=== PATIENT | male | born 1950 | race African-American/Black ===

== ENCOUNTER 2021-03-01 18:15 | Emergency (ER) | payer BC, SELFPAY ==
--- NOTE | ~2021-03-01 | XR_ITS ---
EXAMINATION: XR abdomen/kub 1V EXAM DATE: 03/01/2021 19:06 INDICATION: Constipation. TECHNIQUE: Frontal projection of the upper abdomen, frontal projection lower abdomen/pelvis for inter pretation. There is no prior study for comparison. FINDINGS: There is moderate amount of colonic stool and gas. No small bowel dilation, nonobstructiv e bowel gas pattern. Chronic pelvic calcifications. There is no organomegaly suspected. There are mild bony degenerative changes. IMPRESSION: Moderate amount of colonic stool. Reviewed, dictated and finalized at location A. RPRETIVE NATURALIST
[2021-03-01 18:41] VITALS: BP 164/118; PULSE 88; RESP 18; TEMP 35.7; O2SAT 100
--- NOTE | 2021-03-01 18:41 | ED.GENADULT ---
HPI - General Adult General Chief complaint: Abdominal Pain Stated complaint: Locked Bowels Time Seen by Provider: 03/01/21 18:41 Source: patient and family History of Present Illness HPI narrative: PATIENT HERE FOR EVALUATION OF CONSTIPATION. PATIENT HAS NOT TRIED ANYTHING OTC FOR HIS CONSTIPATION. DENIES ANY NAUSEA, NO ABDOMINAL PAIN NO RECTAL PAIN. PATIENT STATES HIS LAST BM WAS 4 DAYS AGO. Related Data Allergies Allergy/AdvReac Type Severity Reaction Status Date / Time No Known Allergies Allergy Unverified 06/13/18 00:54 Review of Systems Review of Systems: CONSTITUTIONAL: Denies fever, chills, or sweats. EYES: Denies visual changes, redness, or discharge. ENT: Denies rhinorrhea, congestion, sore throat, or otalgia. CARDIOVASCULAR: Denies chest pain, palpitations, or edema. RESPIRATORY: Denies cough or dyspnea. GASTROINTESTINAL: Denies abdominal pain, nausea, vomiting, or diarrhea. GENITOURINARY: Denies dysuria or hematuria. SKIN: Denies rash or itching. MUSCULOSKELETAL: Denies back pain, joint pain, or myalgia. NEUROLOGIC: Denies headache, numbness, or weakness. PSYCHIATRIC: Denies anxiety or depression. [facility] Past Medical History Medical History (Updated 03/01/21 @ 19:00 by CASSIE Herrera) Arthritis Cataracts, bilateral CVA (cerebral vascular accident) DM II (diabetes mellitus, type II), controlled GI bleed History of kidney stones Hypercholesteremia Hypertension Ulcer Surgical History Surgical History (Updated 02/02/19 @ 16:54 by Teja Lennon) No significant past surgical history Social History Social History (Updated 02/02/19 @ 16:55 by Teja Lennon) Smoking packs per day: 1 Smoking cigarettes per day: 20.0 Smoking status: Current every day smoker Gender identity (if verbalized by the patient): Male Comments At time of signature, agree with nursing past medical, surgical, social and family history. There is no relevant family history pertinent to the presenting complaint Exam Narrative: GENERAL: Well-appearing, well-nourished, and in no acute distress. HEAD: Normocephalic, atraumatic. EYES: PERRLA and EOMI. ENT: Nares clear, no rhinorrhea or epistaxis. Mucous membranes moist. NECK: Supple. CHEST: Clear to auscultation. No respiratory distress. HEART: Regular rate and rhythm. No murmur heard. Normal peripheral pulses. ABDOMEN: Soft, nontender, nondistended, normal active bowel sounds. EXTREMITIES: Normal range of motion. No edema. SKIN: Warm, dry, no rash. NEURO: No focal deficits. Alert and oriented x3. Radha Coma Scale Eye Opening: Spontaneous 4 Radha Coma Scale Motor: Obeys Commands 6 [place] Coma Scale Verbal: Oriented 5 Radha Coma Scale Total 15 Course Vital Signs Vital signs: Vital Signs Temperature 35.7 C L 03/01/21 18:41 Pulse Rate 88 03/01/21 18:41 Respiratory Rate 18 03/01/21 18:41 Blood Pressure 164/118 H 03/01/21 18:41 Pulse Oximetry 100 03/01/21 18:41 Temperature 35.7 C L 03/01/21 18:53 Pulse Rate 88 03/01/21 18:53 Respiratory Rate 18 03/01/21 18:53 Blood Pressure 164/118 H 03/01/21 18:53 Pulse Oximetry 100 03/01/21 18:53 Addressed elevated BP today. Today's blood pressure higher than recommended range. Discussed importance of follow -up with PCP and possible shelter effects/cardiovascular events related to HTN. Currently patient denies headache, dizziness, vision changes, CP or shortness of breath. PATIENT REPORTS STARTING ON A NEW MEDICATION FOR HIS BLOOD PRESSURE THIS WEEK. PATIENT STATES WAS EVALUATIED BY PCP AND PRESCRIBED A NEW MEDICATION FOR HIS BLOOD PRESSURE PATIENT DENIES ANY S/S OF HYPERTENSION. DISCUSSED RED FLAGS AND ENCOURAGEGED PATIENT TO CALL PCP IN AM FOR DISCUSSION OF ELEVATED BLOOD PRESSURE. There is moderate amount of colonic stool and gas. No small bowel dilation, nonobstructive bowel gas pattern. Chronic pelvic calcifications. There is no organomegaly suspected. There are mild bony degenerati
[2021-03-01 18:53] VITALS: BP 164/118; PULSE 88; RESP 18; TEMP 35.7; O2SAT 100
== END 2021-03-01 19:16 | disposition home or self-care (01) ==
PROVIDERS: Emergency Provider Nurse Practitioner Family
DX: K59.00 Constipation, unspecified (principal); F17.210 Nicotine dependence, cigarettes, uncomplicated; M19.90 Unspecified osteoarthritis, unspecified site; Z86.73 Personal history of transient ischemic attack (TIA), and cerebral infarction without residual deficits; E11.9 Type 2 diabetes mellitus without complications; E78.00 Pure hypercholesterolemia, unspecified; I10 Essential (primary) hypertension; H26.9 Unspecified cataract
CPT/HCPCS: 74018; 99213; G0463

== ENCOUNTER 2021-03-06 01:00 | Emergency (ER) | payer BC, SELFPAY ==
--- NOTE | ~2021-03-06 | CT_ITS ---
EXAMINATION: CT abdomen pelvis w con INDICATION: Abdominal pain TECHNIQUE: Computed tomographic images of the abdomen and pelvis were obtained after the administrati on of 100 cc of Omnipaque 350 intravenous contrast. The dose-length product (DLP) was 288.22 mGy-cm. Automated exposure control and iterative reconstruction technique were employed. COMPARISON: None available FINDINGS: There is severe emphysema of the visualized lung bases. There are multiple small cysts of t he liver which measure up to 6 mm. The spleen, pancreas, gallbladder, and adrenal glands are normal. The right kidney is unremarkable. There is a 1.5 cm cyst of the left kidney. No pathologically enlarg ed abdominal or pelvic lymph nodes are identified. There is no free intraperitoneal gas or evidence o f bowel obstruction. There is calcified atherosclerosis of the aorta and many of the other arteries. A large volume of colonic stool is present. Coarse calcifications are noted in the prostate. There is a large right inguinal hernia extending into the scrotum containing greater than 10 cm nonobstructed large bowel. There is severe lumbar spondylosis. IMPRESSION: 1. Large right inguinal hernia containing greater than 10 cm of nonobstructed large bowel. 2. Constipation. 3. Severe emphysema visualized lung bases. Reviewed, dictated and finalized at location A. NCT ART HISTORY INSTRUCTOR IMPRESSION: 1. Large right inguinal hernia containing greater than 10 cm of nonobstructed l arge bowel. 2. Constipation. 3. Severe emphysema visualized lung bases.
[2021-03-06 01:26] VITALS: BP 185/116; PULSE 82; RESP 18; O2SAT 97
[2021-03-06 02:03] LABS: Basophils Percent Auto 0.6 % (0.2-1.2); Eosinophils Absolute Auto 0.1 K/mm3 (0-0.3); Eosinophils Percent Auto 1.8 % (0-4.4); Hematocrit 41.8 % (42.0-52.0); Hemoglobin 13.3 g/dL (14.0-18.0); Immature Granulocyte Absolute 0.01 K/mm3 (0.00-0.031); Immature Granulocyte Percent A 0.2 % (0-0.5); Lymphocytes Absolute Auto 1.88 K/mm3 (0.9-3.2); Lymphocytes Percent Auto 37.2 % (18.3-44.2); Mean Corpuscular HGB Conc 31.8 g/dl (32-36); Mean Corpuscular Hemoglobin 27.1 pg (26-34); Mean Corpuscular Volume 85.1 fl (80-100); Mean Platelet Volume 8.6 fl (7.4-10.4); Monocytes Absolute Auto 0.4 K/mm3 (0.1-0.6); Monocytes Percent Auto 8.7 % (2.6-8.5); Neutrophils Absolute Auto 2.6 K/mm3 (1.3-6.7); Neutrophils Percent Auto 51.5 % (45.5-73.1); Platelet Count Result 297 k/mm3 (150-375); Red Blood Count 4.91 M/mm3 (4.6-6.20); Red Cell Distribution Width 15.1 % (11.5-14.5); White Blood Count 5.1 K/mm3 (4.5-10.0)
[2021-03-06 02:15] LABS: Lactic Acid Reflex 1.2 mmol/L (0.7-2.1)
[2021-03-06 02:16] LABS: Alanine Aminotransferase 9 U/L (4-50); Albumin Level 4.1 g/dL (3.5-5.1); Alkaline Phosphatase 78 U/L (38-126); Anion Gap 6 mmol/L (8-16); Aspartate Amino Transferase 24 U/L (17-59); Bilirubin,Total 0.5 mg/dL (0.2-1.3); Blood Urea Nitrogen 17 mg/dL (9-20); Calcium 9.3 mg/dL (8.4-10.2); Carbon Dioxide 33 mmol/L (22-30); Chloride 95 mmol/L (98-107); Estimated CRCL calculation 45 ml/min; Estimated Glomerular Filt Rate > 60; Glucose 107 mg/dL (65-110); Lipase 16 U/L (23-300); Magnesium 1.5 mg/dL (1.6-2.3); Potassium 3.7 mmol/L (3.4-5.0); Sodium 134 mmol/L (137-145)
[2021-03-06 03:01] VITALS: BP 170/110; PULSE 71; RESP 16; O2SAT 97
--- NOTE | 2021-03-06 04:45 | ED.GENADULT ---
HPI - General Adult General Chief complaint: Abdominal Pain Stated complaint: kidney pain, low back pain, painful urination Time Seen by Provider: 03/06/21 01:16 History of Present Illness HPI narrative: Patient is a 70-year-old gentleman who presents the emergency department with chief complaint of abdominal discomfort. Patient reports he was seen in urgent care earlier this week told that he had constipation given MiraLAX and put on a stool softener. Patient states he still having very small bowel movements and reports his abdomen feels uncomfortable and feels as though he needs to have a bowel movement. The patient reports he had difficulty urinating and reports that he does can get comfortable. Patient reports that he had no vomiting no blood in his stool patient states that symptoms or not improved by anything. Related Data Allergies Allergy/AdvReac Type Severity Reaction Status Date / Time No Known Allergies Allergy Unverified 06/13/18 00:54 Review of Systems Review of Systems: A 10 system review of systems was completed on the patient and is negative except for what is stated in the HPI. Nursing and ancillary documentation was reviewed. [facility] Past Medical History Medical History Arthritis Cataracts, bilateral CVA (cerebral vascular accident) DM II (diabetes mellitus, type II), controlled GI bleed History of kidney stones Hypercholesteremia Hypertension Ulcer Surgical History Surgical History No significant past surgical history Social History Social History Smoking packs per day: 1 Smoking cigarettes per day: 20.0 Smoking status: Current every day smoker Gender identity (if verbalized by the patient): Male Exam Narrative: GENERAL: Well-appearing, well-nourished, and in no acute distress. HEAD: Normocephalic, atraumatic. EYES: PERRLA and EOMI. ENT: Nares clear, no rhinorrhea or epistaxis. Mucous membranes moist. NECK: Supple. CHEST: Clear to auscultation. No respiratory distress. HEART: Regular rate and rhythm. No murmur heard. Normal peripheral pulses. ABDOMEN: Soft, nontender, nondistended, normal active bowel sounds. : There is a large amount of stool in the rectal vault that is guaiac negative EXTREMITIES: Normal range of motion. No edema. SKIN: Warm, dry, no rash. NEURO: No focal deficits. Alert and oriented x3. PSYCH: Normal mood and affect. Course Course Emergency Course: CT scan of the abdomen pelvis showed moderate amount of stool throughout the colon and rectum. There is no otherwise no acute finding Vital Signs Vital signs: Vital Signs Pulse Rate 82 03/06/21 01:26 Respiratory Rate 18 03/06/21 01:26 Blood Pressure 185/116 H 03/06/21 01:26 Pulse Oximetry 97 03/06/21 01:26 Pulse Rate 76 03/06/21 05:01 Respiratory Rate 18 03/06/21 05:01 Blood Pressure 169/123 H 03/06/21 05:01 Pulse Oximetry 98 03/06/21 05:01 Medical Decision Making Vital Signs Vital Signs: Vital Signs Pulse Rate 82 03/06/21 01:26 Respiratory Rate 18 03/06/21 01:26 Blood Pressure 185/116 H 03/06/21 01:26 Pulse Oximetry 97 03/06/21 01:26 Pulse Rate 76 03/06/21 05:01 Respiratory Rate 18 03/06/21 05:01 Blood Pressure 169/123 H 03/06/21 05:01 Pulse Oximetry 98 03/06/21 05:01 Lab Data Result diagrams: 03/06/21 01:56 03/06/21 01:56 Labs: Lab Results 03/06/21 03/06/21 03/06/21 Range/Units 01:56 01:56 01:56 WBC 5.1 (4.5-10.0) K/mm3 RBC 4.91 (4.6-6.20) M/mm3 Hgb 13.3 L (14.0-18.0) g/dL Hct 41.8 L (42.0-52.0) % MCV 85.1 (80-100) fl MCH 27.1 (26-34) pg MCHC 31.8 L (32-36) g/dl RDW 15.1 H (11.5-14.5) % Plt Count 297 (150-375) k/mm3 MPV 8.6 (7.4-10.4) fl Immature Gran % (Auto)
[2021-03-06 05:01] VITALS: BP 169/123; PULSE 76; RESP 18; O2SAT 98
--- NOTE | 2021-03-06 05:07 | PC.NURSE ---
[address] erp aware of bp dr narayan
[2021-03-06 05:57] LABS: Add Urine Microscopic? YES; Appearance Urine Cloudy (Clear); Bacteria Urine Trace /hpf; Bilirubin Urine Negative (Negative); Blood Urine Negative (Negative); Color Urine Yellow (Yellow); Glucose Urine UA Negative (Negative); Ketones Urine Negative (Negative); Leukocyte Esterase Ur 3+ LEU/UL (Negative); Mucus Urine Few /lpf; Nitrate Urine Positive (Negative); Protein Urine Negative (Negative); RBC Urine 21-50 /hpf (0-2); Squamous Epithelial Cell Urine Many /hpf (Few); WBC Urine >75 /hpf
[2021-03-06 06:14] VITALS: BP 170/110; PULSE 73; RESP 20; O2SAT 93
[2021-03-06] MEDS: CEPHALEXIN 500 MG CAPSULE PO (06:23)
--- NOTE | 2021-03-06 06:24 | PC.NURSE ---
dr narayan aware of bp ok for patient to go home and take home meds
[2021-03-06] MEDS: MAGNESIUM CITRATE 300 ML BTL PO (06:42)
--- NOTE | 2021-03-06 06:49 | PC.NURSE ---
pt c/o sob with upper expiatory wheezing requested reeval per dr mejia will order the patient a resp tx prior to discharge
[2021-03-06 06:51] VITALS: PULSE 72; RESP 18; O2SAT 94
[2021-03-06] MEDS: ALBUTEROL SULFATE NEB 2.5 MG/0.5 ML INH 5 MG INHALATION (07:06)
[2021-03-06] MEDS: IPRATROPIUM BR 0.02% INH SOLN 0.5 MG/2.5 ML VIAL INHALATION (07:07)
== END 2021-03-06 07:33 | disposition home or self-care (01) ==
PROVIDERS: Emergency Provider Emergency Medicine
DX: N39.0 Urinary tract infection, site not specified (principal); K59.00 Constipation, unspecified; E11.9 Type 2 diabetes mellitus without complications; E78.00 Pure hypercholesterolemia, unspecified; I10 Essential (primary) hypertension; M19.90 Unspecified osteoarthritis, unspecified site; Z86.73 Personal history of transient ischemic attack (TIA), and cerebral infarction without residual deficits; Z87.442 Personal history of urinary calculi; F17.210 Nicotine dependence, cigarettes, uncomplicated
CPT/HCPCS: 36415; 74177; 80053; 81001; 83605; 83690; 83735; 85025; 87077; 87086; 87186; 94640; 99284; A9270; Q9967

== ENCOUNTER 2023-06-10 08:54 | Outpatient (CLI) | payer OTHER, MEDICARE, MEDICAID, SELFPAY ==
--- NOTE | ~2023-06-10 | XR_ITS ---
MODIFIED ESOPHAGRAM HISTORY: Dysphagia. TECHNIQUE: Modified barium esophagram was performed on 06/10/2023. I administered fluoroscopy and perf ormed the exam with speech pathologist. Patient was seated for lateral fluoroscopic imaging for sybil stion of thin liquids, pudding, solids and quantified amounts, followed by thin liquids in uncontroll ed amounts. This was recorded on tape. A single fluoroscopic spot image was also recorded. The DAP fo r this procedure was 2.2 Gycm2. The amount of fluoroscopy time used during this procedure was 3.3 min utes. FINDINGS: Oral stage: Adequate function. Pharyngeal stage: Reduced laryngeal elevation and adduction. Reduced tongue base retraction and phary ngeal squeeze. There is vallecular and piriform sinus residue. There is laryngeal penetration with as piration. Cervical/esophageal stage: Adequate function. IMPRESSION: Pharyngeal dysphagia with laryngeal penetration and aspiration. Please correlate with sp eech pathologist findings and specific feeding recommendations. Reviewed, dictated and finalized at location A. IMPRESSION: Pharyngeal dysphagia with laryngeal penetration and aspiration. Pl ease correlate with speech pathologist findings and specific feeding recommenda tions.
--- NOTE | 2023-06-13 12:36 | REHSTMBS ---
Assessment and note entered by KAYLA Carrillo Modified Barium Swallow Evaluation Feeding Type Recommended Oral Food Consistency Soft and Bite Size, Level Liquid Consistency Thin (0) Treatment Recommendations Laryngeal Elevation Exerc,Tongue Base Exercise ST Clinical Summary MODIFIED BARIUM SWALLOW STUDY (MBS) This patient was seen for a Modified Barium Swallow study at the request of his physician. He is a resident of formerly [facility] where he has been receiving Speech Therapy. He was accompanied today by his speech pathologist, Lala. The patient was viewed in the lateral position to the level of C5/C6. Patient exhibited the following impairments: Oral Stage: None. Pharyngeal Stage: Reduced laryngeal elevation and adduction characterized as reduced epiglottal closure with penetration into the airway and aspiration on a mild amount of ball of material on solid food while chewing. Reduced tongue base retraction and pharyngeal squeeze resulting in vallecular and pharyngeal residue after the swallows with pyriform sinus residue as well. Cricopharyngeal Stage: None. Results suggest patient may continue to be an oral feeder. He may have Regular Liquids but straws should be avoided. He may have Mechanical Soft foods that require chewing but Pureed Diet might be safer. Results were discussed with patient and KAYLA Reeves. Thank you for this referral.
== END 2023-06-10 08:55 | disposition home or self-care (01) ==
LOC: ANHIMG 09:07
DX: R13.13 Dysphagia, pharyngeal phase (principal)
CPT/HCPCS: 92611